=== PATIENT | female | born 1970 | race African-American/Black ===

== ENCOUNTER 2018-11-26 12:46 | Outpatient (CLI) | payer OTHER ==
--- NOTE | 2018-11-26 13:48 | XRay Report ---
XRAY CERVICAL SPINE WITH OBLIQUES FIVE VIEWS: 11/26/18 12:46:00 CLINICAL: Neck pain and right shoulder pain. FINDINGS: Straightening of cervical spine. Normal vertebral body alignment through T1. Mild decreased height of C4, C5 and C6 vertebral bodies. Moderate degenerative disc disease from C3-4 through C6-7 and worse at C5-6. Right neural foramina are widely patent. Mild left neural foraminal narrowing by osteophytes at C5-6 and C6-7. Minimal facet joint disease. No fracture or subluxation. Normal soft tissues and airway. IMPRESSION: Moderate multilevel degenerative disc disease from C3-4 through C6-7.
--- NOTE | 2018-11-26 13:52 | XRay Report ---
XRAY RIGHT SHOULDER THREE VIEWS: 11/26/18 12:46:00 CLINICAL: Pain. FINDINGS: Normal glenohumeral alignment and no glenohumeral joint arthritis. Slight widening of the acromioclavicular joint and slight elevation of the clavicle. No fracture. Normal soft tissues. IMPRESSION: Suspect acromioclavicular joint injury and acromioclavicular joint separation.
== END 2018-11-26 12:47 | disposition home or self-care (01) ==
LOC: SPVIMAG 12:46
PROVIDERS: ATTEND Internal Medicine
DX: M50.323 Other cervical disc degeneration at C6-C7 level (principal); M25.511 Pain in right shoulder
CPT/HCPCS: 72050

== ENCOUNTER 2018-12-11 09:54 | Outpatient (CLI) | payer OTHER ==
--- NOTE | 2018-12-11 10:51 | Mammography Report ---
Augmented screening mammogram: Standard imaging as well as displacement views are obtained. The patient has bilaterally intact submuscular saline implants.The surrounding breast pattern is heterogeneously dense bilaterally. In the right breast there is a previously biopsied lobulated, circumscribed nodule above and medial to the nipple containing a marker. There are several smaller centimeter sized nodular appearing focal densities identified in the central and lateral inferior breast as well as one superiorly. No nodularity is identified on the left. CAD used. Impressions: Nodular breast pattern on the right. Recommendation: Prior exams are being requested for comparison before final recommendation. BI-RADS CATEGORY: 0 = Needs additional imaging evaluation ACR BI-RADS MAMMOGRAPHIC CODES: 0 = Needs additional imaging evaluation; 1 = Negative; 2 = Benign; 3 = Probably benign; 4 = Suspicious; 5 = Malignant; 6 = Known biopsy-proven malignancy COMMENT: 1. Dense breast tissue, i.e., adenosis, fibrocystic changes, etc., may obscure an underlying neoplasm. 2. Approximately 10% of cancers are not detected with mammography. 3. A negative mammography report should not delay biopsy if a clinically suspicious mass is present.
== END 2018-12-11 09:55 | disposition home or self-care (01) ==
LOC: SPVWC 09:54
PROVIDERS: ATTEND Internal Medicine
DX: Z12.31 Encounter for screening mammogram for malignant neoplasm of breast (principal)
CPT/HCPCS: 77067

== ENCOUNTER 2019-04-09 11:40 | Outpatient (CLI) | payer OTHER ==
--- NOTE | 2019-04-09 13:20 | Ultrasound Report ---
THYROID ULTRASOUND:04/09/19 11:40:00 CLINICAL: History of thyroid cancer status post thyroidectomy in 2010. FINDINGS: High-resolution ultrasound demonstrated no residual thyroid and no neck mass. A few bilateral jugular lymph nodes with central fat and benign morphology. A lymph node in the right mid neck measures 1.7 x 0.3 x 0.5 cm. A lymph node in the mid left neck measures 0.7 x 0.2 x 0.4 cm and a lymph node in the lower left neck measures 1.2 x 0.5 x 0.7 cm. No suspicious lymph nodes. IMPRESSION: Negative study status post total thyroidectomy. Benign cervical lymph nodes.
== END 2019-04-09 11:41 | disposition home or self-care (01) ==
LOC: US 11:40
PROVIDERS: ATTEND Internal Medicine
DX: E04.1 Nontoxic single thyroid nodule (principal)
CPT/HCPCS: 76536

== ENCOUNTER 2019-11-19 12:50 | Outpatient (CLI) | payer OTHER ==
--- NOTE | 2019-11-19 14:38 | XRay Report ---
CHEST 2 VIEWS INDICATION: CHEST PAIN, UNSPECIFIED. COMPARISON: None FINDINGS: Support devices: None. Heart: Within normal limits. Lungs: No acute air space or interstitial disease. Pleura: No significant pleural effusion. No pneumothorax. Additional findings: None. IMPRESSION: 1. No acute findings. Signer Name: Chris Arreaga MD Signed: 11/19/2019 2:33 PM Workstation Name: [id number]
--- NOTE | 2019-11-19 16:18 | Mammography Report ---
DIGITAL SCREENING MAMMOGRAM WITH CAD, 11/19/2019 INDICATION: Routine screening mammography. TECHNIQUE: Digital bilateral 2D mammography was obtained in the craniocaudal and mediolateral obliq ue projections without and with implant displacement. This examination was interpreted with the benef it of Computer-Aided Detection analysis. COMPARISON: 12/11/2018 FINDINGS: Breast Density: The breasts are heterogeneously dense, which may obscure small masses. There is no evidence of new mass, suspicious calcifications or architectural distortion in either perico ast. Bilateral subpectoral implants in place. A right retroareolar 1.8 cm circumscribed mass with a b iopsy clip. IMPRESSION: No mammographic evidence of malignancy. Follow up recommendation: Routine yearly BI-RADS Category 2: Benign. A "normal" or negative report should not discourage follow up or biopsy of a clinically significant f inding. A written summary of these findings will be mailed to the patient. The patient will be entered into a mammography reporting system which will generate a reminder letter for the patient's next appointmen t at the appropriate interval. The [employer] recommends yearly mammograms starting at age 40 and continuing as l sophia as a woman is in good health. Breast MRI is recommended for women with an approximate 20-25% or greater lifetime risk of breast cancer, including women with a strong family history of breast or ova marcelino cancer or who have been treated for Hodgkin's disease. Signer Name: Greg Rubin MD Signed: 11/19/2019 4:14 PM Workstation Name: [id number]
== END 2019-11-19 12:51 | disposition home or self-care (01) ==
LOC: SPVWC 12:50
PROVIDERS: ATTEND Internal Medicine
DX: Z12.31 Encounter for screening mammogram for malignant neoplasm of breast (principal); R07.9 Chest pain, unspecified
CPT/HCPCS: 71046; 77067